=== PATIENT | female | born 1970 | race Caucasian/White ===

== ENCOUNTER → 2016-12-01 | Outpatient (CLI) | payer OTHER ==
[~2016-12-01] MED LIST: CHOL500015 PO; DIAZ5TAB PO; DOCU240C53 PO; ESTR1TAB15 PO; HYDR-3240 PO; SUCR1TAB PO
== END | disposition home or self-care (01) ==
LOC: STAR 09:46
PROVIDERS: ATTEND Obstetrics & Gynecology Female Pelvic Medicine and Reconstructive Surgery
DX: Z02.9 Encounter for administrative examinations, unspecified (principal)

== ENCOUNTER 2016-12-13 10:29 | Day surgery (SDC) | payer MEDICARE, OTHER ==
[~2016-12-13] VITALS: Ht 167.6 cm; Wt 71.0 kg
[~2016-12-13 10:29] MED LIST changes: +BUPIVACAINE/PF-EPI 0.25% 1:200K ONE
[2016-12-13] MEDS ORDERED: LACTATED RINGERS 1,000 ML IV SCH ×2 (10:56→14:23)
[2016-12-13 10:57] VITALS: BP 122/85
[2016-12-13] MEDS ORDERED: LIDOCAINE 1%, 2ML SQ PRN (11:00)
[2016-12-13] MEDS ORDERED: 5-HY50CA PO (11:01)
[2016-12-13] MEDS ORDERED: MIDAZOLAM 1 MG/ML, 2ML ONE ×2 (11:13→12:28)
[2016-12-13] MEDS ORDERED: FENTANYL PF 250 MCG/5ML ONE (11:13)
[2016-12-13] MEDS ORDERED: KETOROLAC 30 MG/1 ML ONE (12:34)
[2016-12-13] MEDS ORDERED: PROPOFOL 10 MG/ML, 20ML ONE (12:34)
[2016-12-13] MEDS ORDERED: GLYCOPYRROLATE 0.2MG/1ML ONE (12:34)
[2016-12-13] MEDS ORDERED: SUCCINYLCHOLINE 20 MG/ML, 10ML ONE (12:34)
[2016-12-13] MEDS ORDERED: ROCURONIUM 10 MG/ML ONE (12:34)
[2016-12-13] MEDS ORDERED: ONDANSETRON 2MG/ML, 2ML ONE (12:34)
[2016-12-13] MEDS ORDERED: NEOSTIGMINE 1 MG/ML, 10ML ONE (12:34)
[2016-12-13] MEDS ORDERED: DEXAMETHASONE 4 MG/ML, 1ML ONE (12:34)
[2016-12-13] MEDS ORDERED: CEFAZOLIN 1,000 MG ONE (12:34)
[2016-12-13] MEDS ORDERED: BUPIVACAINE/PF-EPI 0.25% 1:200K INFIL ONE (13:12)
[2016-12-13] MEDS ORDERED: ONDANSETRON 2MG/ML, 2ML IVPush PRN ×2 (13:30→14:30)
[2016-12-13] MEDS ORDERED: MIDAZOLAM 1 MG/ML, 2ML IV PRN (13:30)
[2016-12-13] MEDS ORDERED: MEPERIDINE/PF 25MG/0.5ML IVPush PRN (13:30)
[2016-12-13] MEDS ORDERED: METOCLOPRAMIDE 5 MG/ML, 2ML IV PRN (13:30)
[2016-12-13] MEDS ORDERED: hydrALAzine 20 MG/ML, 1ML IV PRN (13:30)
[2016-12-13] MEDS ORDERED: LABETALOL 5MG/ML, 20ML IV PRN (13:30)
[2016-12-13] MEDS ORDERED: HYDROmorphone 1 MG/ML, 1ML IV PRN (13:30)
[2016-12-13] MEDS ORDERED: ALBUTEROL/IPRATROPIUM 2.5MG/0.5MG, 3 ML NPPB PRN (13:30)
[2016-12-13] MEDS ORDERED: DIAZEPAM 5 MG/ML, 2ML IV PRN (13:30)
[2016-12-13] MEDS ORDERED: morphine SULFATE 10 MG/ML, 1ML IV PRN (13:30)
[2016-12-13] MEDS ORDERED: PROMETHAZINE 25 MG/ML, 1ML IV PRN (13:30)
[2016-12-13] MEDS ORDERED: OXYcodone 5 MG/5 ML ORAL.SOL UDC PO PRN (13:30)
[2016-12-13] MEDS ORDERED: ACETAMINOPHEN 325 MG TABLET PO PRN (13:30)
[2016-12-13] MEDS ORDERED: OXYcodone 5 MG/5 ML ORAL.SOL UDC ONE (13:45)
[2016-12-13] MEDS: FENTANYL PF 100 MCG/2ML IV PRN ×2 (13:45→14:30)
[2016-12-13] MEDS ORDERED: DIAZEPAM 5 MG/ML, 2ML ONE (13:46)
[2016-12-13] MEDS ORDERED: FENTANYL PF 100 MCG/2ML ONE (13:46)
[2016-12-13] MEDS ORDERED: IBUPROFEN 600 MG TABLET PO PRN (14:30)
[2016-12-13] MEDS ORDERED: PROMETHAZINE 12.5 MG SUPP PR ONE (14:30)
[2016-12-13] MEDS ORDERED: HYDROcodone/APAP 5/325 TABLET PO PRN (14:30)
== END 2016-12-13 18:30 | disposition home or self-care (01) ==
LOC: OUT 10:29
PROVIDERS: ATTEND Obstetrics & Gynecology Female Pelvic Medicine and Reconstructive Surgery
DX: N83.11 Corpus luteum cyst of right ovary (principal); N83.8 Other noninflammatory disorders of ovary, fallopian tube and broad ligament; K21.9 Gastro-esophageal reflux disease without esophagitis; Z87.442 Personal history of urinary calculi; G43.909 Migraine, unspecified, not intractable, without status migrainosus; F31.9 Bipolar disorder, unspecified; F41.9 Anxiety disorder, unspecified; Z90.49 Acquired absence of other specified parts of digestive tract; Z90.710 Acquired absence of both cervix and uterus; N73.6 Female pelvic peritoneal adhesions (postinfective)
CPT/HCPCS: 58661; 88305; J0330; J0690; J1100; J1885; J2250; J2405; J2704; J2710; J3010; J3360; J7120; J3490